=== PATIENT | female | born 1995 | race Caucasian/White ===

== ENCOUNTER 2022-01-03 11:05 | Outpatient (CLI) | payer BC | END 2022-01-03 14:31 | disposition home or self-care (01) | LOC: GENOP 11:05 | DX: O47.03 False labor before 37 completed weeks of gestation, third trimester (principal); Z3A.34 34 weeks gestation of pregnancy | CPT/HCPCS: 81001; 96360; 96361 ==

== ENCOUNTER 2022-01-17 12:54 | Observation (INO) | payer BC ==
[2022-01-17 13:44] LABS: HEMOGLOBIN 13.2 gm/dl (12.3-15.3); RED BLOOD COUNT 4.03 M/UL (4.00-5.10); WHITE BLOOD COUNT 12.1 K/UL (4.5-11.0)
[2022-01-17 14:13] LABS: BUN/CREATININE RATIO 14 (0-10)
== END 2022-01-17 16:31 | disposition home or self-care (01) ==
LOC: GENOP 12:54 → OB 13:28
PROVIDERS: ADMIT Obstetrics & Gynecology
DX: O13.3 Gestational [pregnancy-induced] hypertension without significant proteinuria, third trimester (principal); Z3A.36 36 weeks gestation of pregnancy
CPT/HCPCS: 36415; 76815; 80053; 81001; 82570; 83615; 84156; 84550; 85025; 96360; G0378

== ENCOUNTER 2022-01-24 05:41 | Inpatient (IN) | payer BC ==
[~2022-01-24] VITALS: Ht 165.1 cm; Wt 77.1 kg
[2022-01-24 06:40] LABS: RED BLOOD COUNT 3.98 M/UL (4.00-5.10); WHITE BLOOD COUNT 10.9 K/UL (4.5-11.0)
[2022-01-24] MEDS ORDERED: PRENATAL TABLE1 EAC6 PO (10:08)
[2022-01-24] MEDS ORDERED: IBUPROFEN600 MG PO (14:32)
[2022-01-24] MEDS ORDERED: COLACE 100MG C100 MG PO (14:32)
[2022-01-25 06:32] LABS: HEMOGLOBIN 11.5 gm/dl (12.3-15.3)
== END 2022-01-26 16:07 | disposition home or self-care (01) | DRG 807 ==
LOC: OB 05:41 → OR 05:41 → OB 07:58
PROVIDERS: ADMIT Obstetrics & Gynecology
PROC: 10E0XZZ Delivery of Products of Conception, External Approach (ICD-10-PCS; principal; 2022-01-24)
PROC: 0KQM0ZZ Repair Perineum Muscle, Open Approach (ICD-10-PCS; 2022-01-24)
PROC: 10907ZC Drainage of Amniotic Fluid, Therapeutic from Products of Conception, Via Natural or Artificial Opening (ICD-10-PCS; 2022-01-24)
PROC: 4A1HXCZ Monitoring of Products of Conception, Cardiac Rate, External Approach (ICD-10-PCS; 2022-01-24)
PROC: 3E0234Z Introduction of Serum, Toxoid and Vaccine into Muscle, Percutaneous Approach (ICD-10-PCS; 2022-01-24)
DX: O13.4 Gestational [pregnancy-induced] hypertension without significant proteinuria, complicating childbirth (principal); Z37.0 Single live birth; Z20.822 Contact with and (suspected) exposure to COVID-19; Z3A.37 37 weeks gestation of pregnancy; Z86.73 Personal history of transient ischemic attack (TIA), and cerebral infarction without residual deficits; Z28.310 Unvaccinated for COVID-19; O70.1 Second degree perineal laceration during delivery; Z23 Encounter for immunization
CPT/HCPCS: 36415; 81001; 82800; 85014; 85018; 85025; 85461; 86850; 86900; 86901; 90715; J2590; J2790